=== PATIENT | male | born 1965 | race Caucasian/White ===

== ENCOUNTER → 2019-07-21 | Emergency (ER) | payer MEDICAID, OTHER ==
[~2019-07-21] VITALS: Ht 193 cm; Wt 90.7 kg
[2019-07-21 19:41] LABS: Basophils # (auto) 0.2 10 ^3/uL (0-0.2); Basophils % (auto) 1.1 % (0.0-2.0); Eosinophils # (auto) 0.2 10 ^3/uL (0-0.8); Eosinophils % (auto) 1.6 % (0.0-7.0); Hematocrit 48.5 % (41.0-53.0); Hemoglobin 16.2 g/dL (13.5-17.5); Lymphocytes # (auto) 2.7 10 ^3/uL (0.4-5.4); Lymphocytes % (auto) 18.8 % (10.0-50.0); Mean Corpuscular Hemoglobin 29.3 pg (28.0-32.0); Mean Corpuscular Hgb Conc. 33.4 g/dL (32.0-36.0); Mean Corpuscular Volume 87.7 fL (80.0-100.0); Monocytes # (auto) 1.1 10 ^3/uL (0-1.3); Monocytes % (auto) 7.3 % (0.0-12.0); Neutrophils # (auto) 10.3 10 ^3/uL (1.6-8.6); Neutrophils % (auto) 71.2 % (37.0-80.0); Nucleated Red Blood Cells % 0.8 %; Platelet Count (auto) 160 10^3/uL (140-450); Red Blood Cells 5.53 10^6/uL (4.5-5.90); White Blood Cell 14.5 10^3/uL (4.4-10.8)
[2019-07-21 19:58] LABS: Anion Gap 6 (5-15); Blood Urea Nitrogen 22 mg/dL (7-18); Calcium 8.8 mg/dL (8.5-10.1); Carbon Dioxide 27 mmol/L (21-32); Chloride 107 mmol/L (98-107); Glucose 105 mg/dL (74-106); Potassium 4.2 mmol/L (3.5-5.1); Sodium 140 mmol/L (136-145)
[2019-07-21 20:05] LABS: Alanine Aminotransferase 43 U/L (16-61); Alkaline Phosphatase 112 U/L (45-117); Aspartate Aminotransferase 24 U/L (15-37); Bilirubin, Total 0.3 mg/dL (0.2-1.0); GFR African American 90 mL/min; GFR Non-African American 74 mL/min; Total Protein 7.8 g/dL (6.4-8.2)
[2019-07-21 22:25] LABS: Urine WBC None Seen /hpf (0 - 3)
[2019-07-21 22:30] VITALS: BP 138/70
[2019-07-21 22:41] LABS: Urine Bacteria NONE SEEN /hpf (None Seen); Urine Blood Negative /uL (Negative)
== END | disposition home or self-care (01) ==
LOC: ER 18:53
DX: R07.89 Other chest pain (principal); F41.9 Anxiety disorder, unspecified; E11.9 Type 2 diabetes mellitus without complications; Z87.891 Personal history of nicotine dependence
CPT/HCPCS: 36415; 71045; 80053; 81001; 84484; 85025; 85379; 93005

== ENCOUNTER → 2019-10-21 | Emergency (ER) | payer MEDICAID, OTHER ==
[~2019-10-21] VITALS: Ht 193 cm; Wt 106.6 kg
[~2019-10-21] MED LIST: LIDOCAINE 1% HCL (LOCAL ANESTH.) INJ 20ML MDV IJ ONE; TETANUS-DIPTH-ACEL PERTUSSIS 0.5ML SYR Tdap IM ONE
[2019-10-21 16:41] VITALS: BP 128/68
== END | disposition home or self-care (01) ==
LOC: ER 14:28
DX: S61.210A Laceration without foreign body of right index finger without damage to nail, initial encounter (principal); E11.9 Type 2 diabetes mellitus without complications; Z87.891 Personal history of nicotine dependence; Y08.89XA Assault by other specified means, initial encounter; Y93.89 Activity, other specified; Y92.89 Other specified places as the place of occurrence of the external cause; Y99.8 Other external cause status
CPT/HCPCS: 12001; 73130; 90471; 90715; 99283; J2001

== ENCOUNTER 2022-05-24 13:13 | Emergency (ER) | payer MEDICAID ==
[~2022-05-24] VITALS: Ht 193 cm; Wt 72.7 kg
[2022-05-24] MEDS ORDERED: MORPHINE SULFATE INJ 2 MG/ml SYRG IV ONE (15:15)
[2022-05-24] MEDS ORDERED: ONDANSETRON HCL 4 MG/2 ML VIAL IV ONE (15:15)
[2022-05-24 16:39] VITALS: BP 112/60
[2022-05-24] MEDS ORDERED: TRAM-297 PO (16:40)
== END 2022-05-24 16:56 | disposition home or self-care (01) ==
LOC: EDBD 13:13 → ER 13:13
DX: S32.511A Fracture of superior rim of right pubis, initial encounter for closed fracture (principal); S32.591A Other specified fracture of right pubis, initial encounter for closed fracture; E11.9 Type 2 diabetes mellitus without complications; F12.10 Cannabis abuse, uncomplicated; R94.31 Abnormal electrocardiogram [ECG] [EKG]; Z87.891 Personal history of nicotine dependence; W18.11XA Fall from or off toilet without subsequent striking against object, initial encounter; Y93.01 Activity, walking, marching and hiking; Y92.091 Bathroom in other non-institutional residence as the place of occurrence of the external cause; Y99.8 Other external cause status
CPT/HCPCS: 72192; 73502; 93005; 96374; 96375; 99285; J2270; J2405

== ENCOUNTER 2023-01-04 13:04 | Emergency (ER) | payer MEDICAID ==
[~2023-01-04] VITALS: Ht 193 cm; Wt 63.6 kg
[2023-01-04 13:04] VITALS: BP 98/54; PULSE 56; RESP 16; TEMP 98.1; O2SAT 97
[~2023-01-04 13:04] MED LIST changes: -LIDOCAINE 1% HCL (LOCAL ANESTH.) INJ 20ML MDV IJ ONE; -TETANUS-DIPTH-ACEL PERTUSSIS 0.5ML SYR Tdap IM ONE; +TRAM-297 PO
[2023-01-04] MEDS ORDERED: CEPH500C PO (14:59)
== END 2023-01-04 15:16 | disposition home or self-care (01) ==
LOC: ER 13:04
DX: S01.01XA Laceration without foreign body of scalp, initial encounter (principal); F12.10 Cannabis abuse, uncomplicated; E11.9 Type 2 diabetes mellitus without complications; Z87.891 Personal history of nicotine dependence; W07.XXXA Fall from chair, initial encounter; Y93.89 Activity, other specified; Y92.89 Other specified places as the place of occurrence of the external cause; Y99.8 Other external cause status
CPT/HCPCS: 12001; 70450